=== PATIENT | female | born 1995 | race Caucasian/White ===

== ENCOUNTER 2018-07-18 16:17 | Emergency (ER) | payer BC, MEDICAID ==
[~2018-07-18] VITALS: Ht 162.6 cm; Wt 59.0 kg
[2018-07-18] MEDS ORDERED: birth control pill (16:45)
--- NOTE | 2018-07-18 16:45 | NUR ---
Patient went to bathroom but unable to provide urine specimen.
--- NOTE | 2018-07-18 17:04 | NUR ---
Urine sent to lab & handed to lab staff Leila. Patient discharged to home in stable conditon. Written and verbal after care instructions given to patient. Patient verbalizes understanding of instructions. Patient left ER with brisk steady gait.
[2018-07-18 17:08] LABS: *BILIRUBIN,URIN NEGATIVE (NEGATIVE); *CLARITY,URINE SLIGHTLY CLOUDY (CLEAR); *COLOR,URINE YELLOW (YELLOW); *KETONES,URINE NEGATIVE (NEGATIVE); *UROBILINOGEN,URINE 0.2 E.U./dl (NORMAL); LEUKOCYTE ESTERASE ,URINE 1+ (NEGATIVE); NITRITE, URINE NEGATIVE (NEGATIVE); UGLUCOSE NEGATIVE (NEGATIVE)
[2018-07-18 17:10] LABS: *BLOOD, URINE TRACE (NEGATIVE)
[2018-07-18 17:11] LABS: *URINE HCG, QUAL NEGATIVE (NEGATIVE)
[2018-07-18 17:23] LABS: BACTERIA,URINE FEW /HPF (NONE SEEN); RBC,URINE 0-3 /HPF (0-3)
[2018-07-18 17:30] LABS: SQUAMOUS EPITHELIAL CELL,UR MANY /HPF (NONE SEEN)
== END 2018-07-18 17:06 | disposition home or self-care (01) ==
LOC: ER 16:17
DX: N39.0 Urinary tract infection, site not specified (principal); K59.00 Constipation, unspecified
CPT/HCPCS: 84703; 87077; 87086; A4663

== ENCOUNTER 2019-04-01 19:53 | Emergency (ER) | payer BC, MEDICAID ==
[~2019-04-01] VITALS: Ht 167.6 cm; Wt 56.7 kg
[~2019-04-01 19:53] MED LIST: birth control pill
--- NOTE | 2019-04-01 22:33 | NUR ---
Patient discharged to home in stable conditon. Written and verbal after care instructions given. Patient verbalizes understanding of instructions. walked out of ER with no distress noted.
== END 2019-04-01 22:33 | disposition home or self-care (01) ==
LOC: ER 19:56
DX: H10.9 Unspecified conjunctivitis (principal)
CPT/HCPCS: A4663

== ENCOUNTER 2021-05-05 16:55 | Emergency (ER) | payer BC, MEDICAID ==
[~2021-05-05] VITALS: Ht 165.1 cm; Wt 72.6 kg
--- NOTE | 2021-05-05 17:39 | NUR ---
PT IS IN ROOM #2A. DR SUE EVALUATED THE PT.
[2021-05-05 18:21] LABS: *URINE HCG, QUAL NEG (NEGATIVE)
[2021-05-05 18:23] LABS: *BILIRUBIN,URIN NEGATIVE (NEGATIVE); *BLOOD, URINE 2+ (NEGATIVE); *CLARITY,URINE SLIGHTLY CLOUDY (CLEAR); *COLOR,URINE LIGHT YELLOW (YELLOW); *KETONES,URINE NEGATIVE (NEGATIVE); *UROBILINOGEN,URINE 0.2 E.U./dl (NORMAL); LEUKOCYTE ESTERASE ,URINE NEGATIVE (NEGATIVE); NITRITE, URINE NEGATIVE (NEGATIVE); UGLUCOSE NEGATIVE (NEGATIVE)
--- NOTE | 2021-05-05 19:00 | NUR ---
RECEIEVED REPORT FROM MORNING SHIFT CRISTINO PETIT. PT IN BED A/O X4, DENIES ANY PAIN/DISCOMFORT AT THIS TIME.
[2021-05-05 19:04] LABS: HEMATOCRIT 35.8 % (31.2-41.9); MEAN CORPUSCULAR HEMOGLOBIN 27.5 uug (24.7-32.8); MEAN CORPUSCULAR VOLUME 82.8 fL (75.5-95.3); PLATELET COUNT (AUTO) 260 K/uL (179-408)
[2021-05-05 19:17] LABS: CREATININE 0.8 mg/dL (0.6-1.3); POTASSIUM 3.8 mmol/L (3.5-5.1)
[2021-05-05 19:35] LABS: MAGNESIUM 2.1 mg/dL (1.8-2.4)
[2021-05-05 19:57] LABS: THYROID STIMULATING HORMONE 1.272 mIU/mL (0.358-3.740)
[2021-05-05 20:25] LABS: BACTERIA,URINE MANY /HPF (NONE SEEN); SQUAMOUS EPITHELIAL CELL,UR MANY /HPF (NONE SEEN); WBC,URINE 0-3 /HPF (0-3)
--- NOTE | 2021-05-05 21:03 | NUR ---
Patient discharged to home in stable condition. Written and verbal after care instructions given. Patient verbalizes understanding of instructions. Stressed follow up or return to ER for worsening s/s. Steady gait. No changes in LOC. Denies any n/v. No SILVA/dizzyness.
[2021-05-05 21:04] VITALS: BP 124/77
== END 2021-05-05 21:05 | disposition home or self-care (01) ==
LOC: ER 16:56
DX: K59.00 Constipation, unspecified (principal); K21.9 Gastro-esophageal reflux disease without esophagitis
CPT/HCPCS: 36415; 74018; 83735; 84443; 84703; 85025; 87086; A4663